=== PATIENT | male | born 1995 | race Caucasian/White ===

== ENCOUNTER → 2020-03-17 | Outpatient (CLI) | payer OTHER, SELFPAY | END | disposition home or self-care (01) | PROVIDERS: PCP Internal Medicine | DX: R82.998 Other abnormal findings in urine (principal) | CPT/HCPCS: 87086; 87088; 87186 ==

== ENCOUNTER 2021-12-22 12:57 | Outpatient (CLI) | payer OTHER, MEDICAID, SELFPAY ==
--- NOTE | 2021-12-22 13:01 | US_ITS ---
STUDY: RENAL ULTRASOUND - COMPLETE REASON FOR EXAM: Male, 26 years old. RETENTION OF URINE TECHNIQUE: Ultrasound evaluation of the kidneys was performed with real-time and static espino-scale imaging. COMPARISON: None. FINDINGS: RIGHT KIDNEY: Normal location of the right kidney, which is normal in size. The right kidney measures 11.5 x 4.9 cm. The renal cortex measures 1.1 cm. There is a normal cortex of the right kidney. There is no right renal mass or cyst. There are no right renal calculi. There is no right hydronephrosis. DISTAL RIGHT URETER: There is non-visualization of the distal right ureter. There is no demonstrated right ureterovesical junction calculus. There is no demonstrated right ureteral jet. LEFT KIDNEY: Normal location of the left kidney, which is normal in size. The left kidney measures 11.3 x 5.6 cm. The renal cortex measures 1.4 cm. There is a normal cortex of the left kidney. There is no left renal mass or cyst. There are no left renal calculi. There is no left hydronephrosis. DISTAL LEFT URETER: There is non-visualization of the distal left ureter. There is no demonstrated left ureterovesical junction calculus. There is no demonstrated left ureteral jet. AORTA: There is obscuration of the abdominal aorta by overlying bowel gas I.V.C.: It is not visualized. There is too much overlying bowel gas. BLADDER: The distended urinary bladder has a volume in cc of 30. There is a normal wall thickness of the distended urinary bladder. There is no demonstrated mass within the urinary bladder. There are no demonstrated bladder calculi. US/Kidney and Bladder IMPRESSION: No acute findings of the ultrasound of the kidneys and urinary bladder. Electronically Signed: Silverio Kwan MD at 18:43 EST Reading Location ID and State: [facility] / [place] , Service support ,
== END 2021-12-22 23:59 | disposition home or self-care (01) ==
LOC: US 13:00
PROVIDERS: PCP Internal Medicine; Referring Provider Urology; Visit Provider Urology
DX: R33.9 Retention of urine, unspecified (principal)
CPT/HCPCS: 76770

== ENCOUNTER → 2022-08-28 | Outpatient (CLI) | payer OTHER, SELFPAY ==
[2022-08-28 10:27] LABS: ALB/GLOB Ratio 0.9 RATIO (0.9-2.4); AST(SGOT) 11 U/L (15-37); Alanine Aminotransfer ALT/SGPT 26 U/L (16-61); Albumin, Serum 3.6 g/dL (3.2-5.0); Alkaline Phosphatase 102 U/L (45-117); Anion Gap 7 (5-15); BUN 11 mg/dL (7-18); BUN/Creat Ratio 18.2 RATIO (10-20); Calcium,Total 9.1 mg/dL (8.5-10.1); Chloride 103 mmol/L (98-107); Cholesterol 162 mg/dL (200); Creatinine, Serum 0.61 mg/dL (0.70-1.30); EST Glomerular Filtration Rate 167 mL/min (>60); Est Glom Filt Rate - Afr Amer 202 mL/min (>60); Globulin 4.2 g/dL (2.2-4.2); Glucose 88 mg/dL (74-106); High Density Lipoprotein 41 mg/dL; Potassium 3.9 mmol/L (3.5-5.1); Protein, Total 7.8 g/dL (6.4-8.2); Sodium Level 137 mmol/L (136-145); Triglycerides 107 mg/dL; Very Low Density Lipoprotein 21 mg/dL (5-40)
== END | disposition home or self-care (01) ==
PROVIDERS: PCP Internal Medicine; Referring Provider Internal Medicine; Visit Provider Internal Medicine
DX: K21.9 Gastro-esophageal reflux disease without esophagitis (principal); Z13.220 Encounter for screening for lipoid disorders
CPT/HCPCS: 36415; 80053; 80061

== ENCOUNTER → 2023-09-26 | Outpatient (CLI) | payer OTHER, SELFPAY | END | disposition home or self-care (01) | LOC: LABSPEC 15:57 | PROVIDERS: PCP Internal Medicine; Referring Provider Urology; Visit Provider Urology | DX: N45.4 Abscess of epididymis or testis (principal) | CPT/HCPCS: 87070; 87077; 87186; 87205 ==

== ENCOUNTER 2023-10-11 06:01 | Day surgery (SDC) | payer OTHER, SELFPAY ==
[2023-10-11] VITALS (9 sets, daily range): BP systolic 127–153; BP diastolic 62–109; PULSE 77–108; RESP 16–18; TEMP 36.2–36.9; O2SAT 99–100; BMI 29.5
--- NOTE | 2023-10-11 06:23 | EKG12_ITS ---
Test Reason : PRE OP Blood Pressure : / mmHG Vent. Rate : 093 BPM Atrial Rate : 093 BPM P-R Int : 134 ms QRS Dur : 076 ms QT Int : 356 ms P-R-T Axes : 051 020 022 degrees QTc Int : 442 ms Normal sinus rhythm Normal ECG No previous ECGs available Confirmed by KOLBY PALMER, KIMEBRLEY ([id number]), staff editor LANCE ANN ([id number]) on 10/22/2023 10:18:33 AM Referred By: Lefty Forde Confirmed By:KIMBERLEY JARRETT MD
[2023-10-11] MEDS: Ciprofloxacin 400 MG/200 ML BAG 200 MG IV (06:53)
[2023-10-11] MEDS: Lactated Ringers 1,000 ML 15 ML IV (06:53)
--- NOTE | 2023-10-11 07:24 | HP.PCM_ITS ---
HPI - General General Date of Service: 10/11/23 Chief Complaint: Infected artificial sphincter HPI Narrative NGHIA SAEZ, is a 28 M who presents for removal of a infected artificial sphincter PFSH Medical History (Updated 10/02/23 @ 09:33 by Salima Orozco) Back pain Bladder disease Gastric reflux Hx of spina bifida Non-smoker Pressure ulcer Scoliosis Uses wheelchair Wears glasses Home Medications levofloxacin 500 mg tablet 500 mg PO DAILY 10/02/23 [History Last Taken Unknown] multivitamin with minerals-folic acid 200 mcg chewable tablet (Adult Multivitamin Gummies) 2 tab PO DAILY 10/02/23 [History Last Taken Unknown] oxybutynin chloride 15 mg tablet,extended release 24 hr 15 mg PO BID 10/02/23 [History Last Taken Unknown] polydextrose 2.5 gram-vitamin B complex chewable tablet (Fiber Gummies (with B- complex)) 2 tab PO DAILY 10/02/23 [History Last Taken Unknown] ranitidine HCl 150 mg tablet 150 mg PO BID 10/02/23 [History Last Taken Unknown] levofloxacin 500 mg tablet 500 mg PO DAILY #10 tabs 10/11/23 [Rx Last Taken Unknown] Allergy/AdvReac Type Severity Reaction Status Date / Time cefazolin [From Anc] Allergy Intermediate Rash Verified 10/02/23 09:19 codeine Allergy Intermediate Rash Verified 10/02/23 09:19 latex Allergy Intermediate Rash Verified 10/02/23 09:19 oxycodone AdvReac Severe HALLUCINATI Verified 10/02/23 09:19 ON Surgical History (Updated 10/02/23 @ 09:33 by Salima Orozco) History of brain shunt History of implantation of artificial sphincter Hx of spinal surgery Social History Smoking Status: Never smoker Vital Signs Vital Signs Vital Signs: 10/11/23 06:30 10/11/23 06:30 Temperature 98.4 F Temperature Source Temporal Pulse Rate 91 Respiratory Rate 18 Respiratory Pattern Normal Blood Pressure 127/74 H Blood Pressure Mean 91 Blood Pressure Source Monitor Blood Pressure Position Supine Blood Pressure Location Left Arm Pulse Ox 100 Oxygen Delivery Method Room Air Weight Weight: 90.718 kg Body Mass Index (BMI) 29.5
--- NOTE | 2023-10-11 07:25 | DCINST_ITS ---
Discharge Instructions Diet Discharge Diet: No restrictions Activity Discharge Activity: Return to Normal Activity and May Not Drive (while taking narcotic pain medications.) Dressing / Incision Call your doctor if you observe: Fever of 101 or Higher Follow Up Care Please Follow Up With: Lefty Forde MD When: Call [phone] for an appointment Test Results: Test results from this visit will be discussed in further detail at your follow- up appointment, if applicable. Discharge Plan Admission Primary Reason for Your Visit: removal of infected sphincter Attending Provider: Lefty Forde Primary Care Provider: Susan Saba Instructions Additional Instructions / Restrictions: continue with Wet to Dry Dressings to wounds till healed. Discharge Orders/Prescriptions Prescriptions: New levofloxacin 500 mg tablet 500 mg PO DAILY Qty: 10 0RF Continued oxybutynin chloride 15 mg tablet extended release 24hr 15 mg PO BID Patient Comments: TAKE 1 TABLET BY MOUTH TWICE A DAY ranitidine HCl 150 mg tablet 150 mg PO BID levofloxacin 500 mg tablet 500 mg PO DAILY Adult Multivitamin Gummies 200 mcg tablet,chewable 2 tab PO DAILY Fiber Gummies (with B-complex) 2.5 gram tablet,chewable 2 tab PO DAILY Referrals / Follow Up: Lefty Forde MD [Med Staff - Active Staff] - Susan Saba DO [Primary Care Provider] - Disposition Disposition (needs filled in before D/C Order can be placed): Home, Self Care
[2023-10-11] MEDS: Lidocaine 1% (30 ml sdv) 30 ML Vial (09:06)
--- NOTE | 2023-10-11 09:06 | OP.PCM_ITS ---
Report of Operation Date of Procedure: 10/11/23 Pre-Operative Diagnosis: Infected artificial urethral sphincter Post-Operative Diagnosis: The same plus erosion of this sphincter into the urethra Surgery/Procedure Performed:: Removal of infected artificial urethral sphincter dilation of urethral stricture and Blood placement Description of Surgical Findings:: Is a 28-year-old male with spina bifida I think over 20 years ago he had a artificial urethral sphincter placed when he was a child I do not have any prior records to look at. He presented to my office acutely with a sudden swollen scrotum and incision was done above the swelling and was found to have vaughn pus and underneath the pus was the pump of the sphincter he has not been using the sphincter for a long time and he been doing self-catheterization with a rigid stiff catheter. So he underwent wet-to-dry dressings to the site to clear all the vaughn pus but has been on antibiotics and today were plan to remove the sphincter if possible Patient was taken back to the operating room by the smooth induction of general anesthesia he was placed in dorsolithotomy position. The penis and testicles were shaved prepped and draped in usual sterile fashion as well as the lower abdomen. I first inspected he had the end Flater device exposed and so I made an incision inferior to this and superior to this and this was the insufflator of the sphincter there was tube tubing pipes the one that went superior and then surprisingly underwent also and superior as expected and the other 2 being to go inferior to the urethra but it looks like he was sphincter was a suprapubic s phincter and looks like the sphincter was put in when he was a child and look like is a suprapubic approach and the sphincter was put in above the pubic bone making it extremely difficult to get out. I then tracing the 1-lead and then when it we came to the connection point it came apart was able to able to find the lead after this and then we traced the lead to the reservoir and then the reservoir was delivered the reservoir was full of black really nasty looking fluid this was washed out and removed I then kept following the other lead toward the sphincter and the lead went behind the pubic bone and then dive straight and it looks like the lead had been placed suprapubically around the urethra knowing this this will can be impossible to get out without making him extremely large incision and plus there was be a high risk to damage to the urethra sided decided to do a cystoscopy at this point. I then used the flexible cystoscope went along the course of the urethra the urethra was n arrowed but can get through the scope with an 18 Malaysian flexible camera went went to around with the sphincter was not right past the normal sphincter and right behind the normal sphincter it was the artificial sphincter and could see that it eroded into the urethra and we could see the steel wires and the plastic eroded into urethra and this was it was actually behind the sphincter not in front of the sphincter since it was a suprapubic placed sphincter looking at this I decided that it was going to be extremely difficult and nearly impossible with this approach to get the rest of the artificial sphincter out so I reached down and cut as far possible down posterior to the pubic bone and left the eroded sphincter around the urethra very likely is going to need a reconstruction if this is can be removed which in the I am not prepared to do. So at this point we then washed out the area because it was infected and then I reapproximated the fat but did not close the skin to the once is it was not infected sphincter and then when we did the cystoscopy I put a wire through the area I dilated it with 1618 Malaysian filiforms over the wire and then placed a 16 [place] cold springs tip catheter into the bladder to let the bladder drained the bladder was very distended. So we will continue wet-to-dry dressings over the incision site and I made to remove the pump the reservoir and the tubing but I can refer the patient up to see one of the reconstructive specialist up at the [facility] to hopefully see if they could remove the eroded urethral sphincter and they may have to offer either reconstruction or just delayed healing. I will talk to the family and let them know what we could do here but as far as removing the rest of the sphincter so have to be done at a tertiary care center very difficult location and high chance of complications with removing the sphincter since its already eroded to the urethra. Surgeon: Lefty oFrde Type of Anesthesia: General Drains: 16 fr cold [place] tip Admit VTE Documentation VTE Present on Admission: No VTE Mechan Device Prophylaxis: SCD's VTE Pharm Prophylaxis ordered?: No
== END 2023-10-11 10:41 | disposition home or self-care (01) ==
LOC: SDC 06:02 → AC 06:03
PROVIDERS: PCP Internal Medicine; Referring Provider Urology; Visit Provider Urology
PROC: (CPT 53446; principal; 2023-10-11 07:20)
DX: T83.591A Infection and inflammatory reaction due to implanted urinary sphincter, initial encounter (principal); Q05.9 Spina bifida, unspecified; K21.9 Gastro-esophageal reflux disease without esophagitis; Z79.899 Other long term (current) drug therapy; Z99.3 Dependence on wheelchair; X58.XXXA Exposure to other specified factors, initial encounter
CPT/HCPCS: 53446; 00920; 93005; J7120; C1769; J0744; J2405